=== PATIENT | female | born 1995 | race Caucasian/White ===

== ENCOUNTER 2017-05-03 05:24 | Emergency (ER) | payer MEDICAID ==
[~2017-05-03] VITALS: Ht 152.4 cm; Wt 68.0 kg
[2017-05-03] MEDS ORDERED: ONDANSETRON HCL 4MG/2ML VIAL IV STA (06:21)
[2017-05-03] MEDS ORDERED: KETOROLAC 30MG/ML VIAL IV STA (06:21)
[2017-05-03 06:39] LABS: BASOPHILS % 0.3 % (0.0-2.0); EOSINOPHILS % 0.6 % (0.0-5.0); HEMATOCRIT. 39.6 % (36.0-48.0); HEMOGLOBIN. 13.3 g/dL (12.0-16.0); LYMPHOCYTES % 22.1 % (20.0-50.0); MEAN CORPUSCULAR HEMOGLOBIN 28.7 pg (28.0-32.0); MEAN CORPUSCULAR VOLUME 85.3 fL (81.0-99.0); MONOCYTES % 6.3 % (2.0-8.0); NEUTROPHILS % 70.7 % (40.0-76.0); PLATELET 269 x1000/uL (130-400); RED BLOOD CELL COUNT 4.65 mill/uL (4.2-5.4); RED CELL DISTRIBUTION WIDTH 13.9 % (11.6-14.6)
[2017-05-03 06:43] LABS: CHLORIDE 104 mEq/L (98-107)
[2017-05-03 06:47] LABS: D-DIMER 0.31 mg/L FEU (<0.50); INR 1.1
[2017-05-03 06:51] LABS: CARBON DIOXIDE 25 mEq/L (21-32)
[2017-05-03 07:18] VITALS: BP 111/77
== END 2017-05-03 07:29 | disposition home or self-care (01) ==
LOC: ER 06:02
DX: R07.89 Other chest pain (principal); R11.0 Nausea; R06.02 Shortness of breath; R10.9 Unspecified abdominal pain; D68.0 Von Willebrand disease
CPT/HCPCS: 36415; 71010; 80053; 81025; 85025; 85379; 85610; 96374; 96375; 99285; J1885; J2405; Z7610